=== PATIENT | male | born 1995 | race African-American/Black ===

== ENCOUNTER 2021-01-21 00:16 | Inpatient (IN) | payer MEDICAID, OTHER ==
[~2021-01-21] VITALS: Ht 188 cm; Wt 72.2 kg
[2021-01-21] MEDS ORDERED: ONDANSETRON HCL 4MG/2ML INJ IV STA (01:28)
[2021-01-21] MEDS ORDERED: MORPHINE SULFATE 4 MG/ML CPJ (NOT FOR IM USE) IV STA (01:28)
[2021-01-21] MEDS ORDERED: PIPERACILLIN/TAZ 3.375G PREMIX 50 ML IV ONE (01:30)
[2021-01-21] MEDS ORDERED: VANCOMYCIN 1 G PREMIX 200 ML IV ONE (01:30)
[2021-01-21] MEDS ORDERED: SODIUM CHLORIDE 0.9% 1,000 ML IV ONE (01:30)
[2021-01-21 02:22] LABS: EOSINOPHILS % 2.2 % (0.0-5.0); HEMATOCRIT. 28.9 % (42.0-52.0); HEMOGLOBIN. 9.6 g/dL (14.0-18.0); LYMPHOCYTES % 28.6 % (20.0-50.0); MEAN CORPUSCULAR HEMOGLOBIN 30.5 pg (28.0-32.0); MEAN CORPUSCULAR VOLUME 91.9 fL (80.0-94.0); MEAN PLATELET VOLUME 7.5 fl (7.4-10.4); MONOCYTES % 9.5 % (2.0-8.0); NEUTROPHILS % 58.7 % (40.0-76.0); PLATELET 479 x1000/uL (130-400); RED BLOOD CELL COUNT 3.14 mill/uL (4.7-6.1); RED CELL DISTRIBUTION WIDTH 14.4 % (11.6-14.6)
[2021-01-21 02:26] LABS: CHLORIDE 106 mEq/L (98-107)
[2021-01-21 02:37] LABS: PROTHROMBIN TIME 11.2 sec (9.6-11.0)
[2021-01-21] MEDS ORDERED: MORPHINE SULFATE 4 MG/ML CPJ (NOT FOR IM USE) IV NR (04:15)
[2021-01-21] MEDS ORDERED: ONDANSETRON HCL 4MG/2ML INJ IV PRN (09:30)
[2021-01-21] MEDS ORDERED: HYDROCODONE/ACETAMINOPHEN 5/325MG TABLET PO PRN (09:30)
[2021-01-21] MEDS: HYDROCODONE/ACETAMINOPHEN 5/325MG TABLET PO PRN ×2 (09:47→15:34)
[2021-01-21] MEDS: SODIUM CHLORIDE 0.45% 1,000 ML IV SCH (09:47)
[2021-01-21] MEDS ORDERED: NALOXONE HCL 0.4MG/ML VIAL IV PRN (11:30)
[2021-01-21 16:00] VITALS: BP 146/98
[2021-01-21] MEDS ORDERED: MORPHINE SULFATE 2 MG/ML CPJ (NOT FOR IM USE) IV NR (16:30)
[2021-01-21] MEDS: VANCOMYCIN 1 G PREMIX 200 ML IV SCH (16:41)
[2021-01-21 16:50] VITALS: BP 146/98
[2021-01-21] MEDS: HYDROCODONE/ACETAMINOPHEN 10/325MG TABLET PO PRN ×2 (19:01→23:34)
[2021-01-21 20:00] VITALS: BP 132/80
[2021-01-21] MEDS: PIPERACILLIN/TAZOBACTAM 3.375 G in DEXTROSE 5% WATER 50 ML IV SCH ×2 (21:18→23:36)
[2021-01-22] VITALS: BP 146/92
[2021-01-22 01:59] LABS: *AMPHETAMINES SCREEN URINE NEGATIVE (NEGATIVE)
[2021-01-22 02:00] LABS: *BARBITURATES SCREEN URINE NEGATIVE (NEGATIVE); *BENZODIAZEPINES SCREEN URINE NEGATIVE (NEGATIVE); *COCAINE SCREEN URINE NEGATIVE (NEGATIVE); METHADONE URINE SCREEN NEGATIVE (NEGATIVE); OPIATES URINE SCREEN PRESUMTIVE POSITIVE (NEGATIVE)
[2021-01-22 02:01] LABS: CANNABINOID URINE SCREEN NEGATIVE (NEGATIVE); PHENCYCLIDINE URINE SCREEN NEGATIVE (NEGATIVE)
[2021-01-22 04:00] VITALS: BP 143/99
[2021-01-22] MEDS: HYDROCODONE/ACETAMINOPHEN 10/325MG TABLET PO PRN ×3 (04:38→18:43)
[2021-01-22] MEDS: VANCOMYCIN 1 G PREMIX 200 ML IV SCH ×2 (04:49→19:16)
[2021-01-22] MEDS: SODIUM CHLORIDE 0.45% 1,000 ML IV SCH (04:50)
[2021-01-22] MEDS: PIPERACILLIN/TAZOBACTAM 3.375 G in DEXTROSE 5% WATER 50 ML IV SCH ×3 (06:29→21:49)
[2021-01-22 08:00] VITALS: BP 143/94
[2021-01-22 08:13] LABS: EOSINOPHILS % 3.5 % (0.0-5.0); HEMATOCRIT. 31.6 % (42.0-52.0); HEMOGLOBIN. 10.4 g/dL (14.0-18.0); MEAN CORPUSCULAR VOLUME 91.4 fL (80.0-94.0); MEAN PLATELET VOLUME 8.1 fl (7.4-10.4); MONOCYTES % 8.6 % (2.0-8.0); NEUTROPHILS % 54.9 % (40.0-76.0); PLATELET 498 x1000/uL (130-400); RED BLOOD CELL COUNT 3.45 mill/uL (4.7-6.1); RED CELL DISTRIBUTION WIDTH 14.4 % (11.6-14.6)
[2021-01-22 08:41] LABS: CHLORIDE 105 mEq/L (98-107)
[2021-01-22 12:00] VITALS: BP 147/96
[2021-01-22] MEDS: MORPHINE SULFATE 2 MG/ML CPJ (NOT FOR IM USE) IV PRN ×2 (14:08→21:49)
[2021-01-22 20:00] VITALS: BP 140/99
[2021-01-23] VITALS: BP 135/85
[2021-01-23] MEDS: HYDROCODONE/ACETAMINOPHEN 10/325MG TABLET PO PRN ×3 (01:00→15:50)
[2021-01-23 04:00] VITALS: BP 132/80
[2021-01-23] MEDS: VANCOMYCIN 1 G PREMIX 200 ML IV SCH ×2 (05:18→19:18)
[2021-01-23] MEDS: SODIUM CHLORIDE 0.45% 1,000 ML IV SCH ×2 (05:18→21:10)
[2021-01-23] MEDS: MORPHINE SULFATE 2 MG/ML CPJ (NOT FOR IM USE) IV PRN ×3 (05:18→21:09)
[2021-01-23] MEDS: PIPERACILLIN/TAZOBACTAM 3.375 G in DEXTROSE 5% WATER 50 ML IV SCH ×3 (06:48→21:07)
[2021-01-23 08:00] VITALS: BP 149/99
[2021-01-23 12:00] VITALS: BP 130/91
[2021-01-23 20:00] VITALS: BP 153/99
[2021-01-24] VITALS: BP 150/96
[2021-01-24] MEDS: HYDROCODONE/ACETAMINOPHEN 10/325MG TABLET PO PRN ×3 (01:23→18:04)
[2021-01-24] MEDS: AMLODIPINE 10MG TABLET PO SCH ×2 (01:23→09:46)
[2021-01-24 04:00] VITALS: BP 148/94
[2021-01-24] MEDS: VANCOMYCIN 1 G PREMIX 200 ML IV SCH ×2 (05:12→18:05)
[2021-01-24] MEDS: MORPHINE SULFATE 2 MG/ML CPJ (NOT FOR IM USE) IV PRN ×3 (05:20→20:59)
[2021-01-24] MEDS: PIPERACILLIN/TAZOBACTAM 3.375 G in DEXTROSE 5% WATER 50 ML IV SCH ×3 (06:44→21:48)
[2021-01-24 08:00] VITALS: BP 130/91
[2021-01-24 08:29] LABS: HEMATOCRIT 34.8 % (42.0-52.0); HEMOGLOBIN 11.3 g/dL (14.0-18.0); MEAN CORPUSCULAR HEMOGLOBIN 29.6 pg (28.0-32.0); PLATELET 585 x1000/uL (130-400); RED BLOOD CELL COUNT 3.82 mill/uL (4.7-6.1); RED CELL DISTRIBUTION WIDTH 14.2 % (11.6-14.6)
[2021-01-24 08:36] LABS: CHLORIDE 107 mEq/L (98-107)
[2021-01-24 12:00] VITALS: BP 126/82
[2021-01-24 16:00] VITALS: BP 136/90
[2021-01-24] MEDS: SODIUM CHLORIDE 0.45% 1,000 ML IV SCH (18:05)
[2021-01-24 20:00] VITALS: BP 153/96
[2021-01-25] VITALS: BP 107/53
[2021-01-25] MEDS: HYDROCODONE/ACETAMINOPHEN 10/325MG TABLET PO PRN ×4 (00:28→18:41)
[2021-01-25 04:00] VITALS: BP 140/97
[2021-01-25] MEDS: MORPHINE SULFATE 2 MG/ML CPJ (NOT FOR IM USE) IV PRN ×4 (04:25→22:37)
[2021-01-25 05:26] LABS: CHLORIDE 107 mEq/L (98-107)
[2021-01-25] MEDS: VANCOMYCIN 1 G PREMIX 200 ML IV SCH (05:35)
[2021-01-25] MEDS: PIPERACILLIN/TAZOBACTAM 3.375 G in DEXTROSE 5% WATER 50 ML IV SCH ×3 (06:00→22:29)
[2021-01-25 08:00] VITALS: BP 126/71
[2021-01-25] MEDS: AMLODIPINE 10MG TABLET PO SCH (09:06)
[2021-01-25 12:00] VITALS: BP 131/86
[2021-01-25] MEDS: SODIUM CHLORIDE 0.45% 1,000 ML IV SCH (13:22)
[2021-01-25] MEDS: VANCOMYCIN 1250MG in DEXTROSE 5% WATER 250ML IV SCH (18:00)
[2021-01-25 20:00] VITALS: BP 134/96
[2021-01-26] VITALS: BP 130/90
[2021-01-26] MEDS: HYDROCODONE/ACETAMINOPHEN 10/325MG TABLET PO PRN ×4 (03:25→21:29)
[2021-01-26 04:00] VITALS: BP 124/80
[2021-01-26] MEDS: VANCOMYCIN 1250MG in DEXTROSE 5% WATER 250ML IV SCH ×2 (05:01→18:00)
[2021-01-26] MEDS: MORPHINE SULFATE 2 MG/ML CPJ (NOT FOR IM USE) IV PRN ×3 (05:47→18:01)
[2021-01-26] MEDS: PIPERACILLIN/TAZOBACTAM 3.375 G in DEXTROSE 5% WATER 50 ML IV SCH ×3 (06:29→21:28)
[2021-01-26 08:00] VITALS: BP 144/91
[2021-01-26] MEDS: AMLODIPINE 10MG TABLET PO SCH (09:40)
[2021-01-26] MEDS: SODIUM CHLORIDE 0.45% 1,000 ML IV SCH (09:41)
[2021-01-26 12:00] VITALS: BP 124/89
[2021-01-26 16:00] VITALS: BP 124/79
[2021-01-26 20:00] VITALS: BP 145/99
[2021-01-27] VITALS: BP 144/103
[2021-01-27] MEDS: MORPHINE SULFATE 2 MG/ML CPJ (NOT FOR IM USE) IV PRN ×4 (00:12→18:56)
[2021-01-27 04:00] VITALS: BP 148/93
[2021-01-27] MEDS: SODIUM CHLORIDE 0.45% 1,000 ML IV SCH (06:24)
[2021-01-27] MEDS: AMLODIPINE 10MG TABLET PO SCH (09:13)
[2021-01-27] MEDS: HYDROCODONE/ACETAMINOPHEN 10/325MG TABLET PO PRN ×3 (09:14→22:16)
[2021-01-27 20:00] VITALS: BP 150/97
[2021-01-28] VITALS: BP 123/87
[2021-01-28] MEDS: SODIUM CHLORIDE 0.45% 1,000 ML IV SCH ×2 (03:26→20:51)
[2021-01-28] MEDS: MORPHINE SULFATE 2 MG/ML CPJ (NOT FOR IM USE) IV PRN ×3 (03:27→18:19)
[2021-01-28 04:00] VITALS: BP 123/87
[2021-01-28] MEDS: HYDROCODONE/ACETAMINOPHEN 10/325MG TABLET PO PRN ×3 (06:49→20:56)
[2021-01-28 08:00] VITALS: BP 137/86
[2021-01-28] MEDS: AMLODIPINE 10MG TABLET PO SCH (11:28)
[2021-01-28 20:00] VITALS: BP 142/73
[2021-01-28] MEDS ORDERED: NALOXONE HCL 0.4MG/ML VIAL IV PRN (21:00)
[2021-01-29] VITALS: BP 152/98
[2021-01-29] MEDS: SODIUM CHLORIDE 0.9% 1,000 ML IV SCH ×3 (00:19→20:15)
[2021-01-29] MEDS: MORPHINE SULFATE 2 MG/ML CPJ (NOT FOR IM USE) IV PRN ×4 (00:20→21:36)
[2021-01-29 04:00] VITALS: BP 140/77
[2021-01-29 08:00] VITALS: BP 143/104
[2021-01-29] MEDS ORDERED: LIDOCAINE HCL 1% 20ML VIAL (Pyxis) INJ ONE (08:06)
[2021-01-29] MEDS ORDERED: VANCOMYCIN HCL 1 GM/VIAL ONE (08:06)
[2021-01-29] MEDS ORDERED: BUPIVACAINE HCL/PF 0.5% (5MG/ML) 10ML ONE (08:06)
[2021-01-29] MEDS ORDERED: POLYMYXIN B SULFATE 500000 UNITS/VIAL ONE (08:07)
[2021-01-29] MEDS: AMLODIPINE 10MG TABLET PO SCH (08:50)
[2021-01-29] MEDS ORDERED: ONDANSETRON HCL 4MG/2ML INJ IV PRN (10:15)
[2021-01-29] MEDS ORDERED: HYDROMORPHONE HCL/PF 2MG/ML CPJ IV PRN (10:15)
[2021-01-29] MEDS ORDERED: SODIUM CHLORIDE 0.9% 1,000 ML IV ONE (10:15)
[2021-01-29] MEDS ORDERED: MORPHINE SULFATE 2 MG/ML CPJ (NOT FOR IM USE) IV PRN (10:15)
[2021-01-29] MEDS ORDERED: MEPERIDINE HCL/PF 25MG/ML CPJ IV PRN ×2 (10:15)
[2021-01-29] MEDS ORDERED: ROPIVACAINE HCL 10MG/ML 20 ML VIAL EPI ONE (10:17)
[2021-01-29] MEDS ORDERED: MIDAZOLAM HCL 2 MG/2 ML VIAL ONE (10:18)
[2021-01-29] MEDS ORDERED: PROPOFOL 200MG/20ML VIAL IV ONE (10:18)
[2021-01-29] MEDS ORDERED: FENTANYL CITRATE/PF 50MCG/ML 2ML VIAL ONE (10:18)
[2021-01-29] MEDS ORDERED: GLYCOPYRROLATE 0.2 MG/ML 2ML VIAL ONE (10:19)
[2021-01-29] MEDS ORDERED: CEFAZOLIN SODIUM 1000MG/VIAL ONE (10:19)
[2021-01-29] MEDS ORDERED: METOCLOPRAMIDE HCL 10MG/2ML VIAL ONE (10:19)
[2021-01-29] MEDS ORDERED: SUCCINYLCHOLINE CHLORIDE 200MG/10ML IV ONE (10:19)
[2021-01-29] MEDS ORDERED: BACITRACIN 15GM TUBE TOP ONE (10:59)
[2021-01-29] MEDS ORDERED: TRIAMCINOLONE ACETONIDE 40MG/ML 1ML VIAL ONE (11:18)
[2021-01-29] MEDS ORDERED: DEXAMETHASONE 4MG/ML 1ML VIAL ONE (11:19)
[2021-01-29 16:00] VITALS: BP 140/96
[2021-01-29] MEDS: SODIUM CHLORIDE 0.45% 1,000 ML IV SCH (16:58)
[2021-01-29] MEDS: HYDROCODONE/ACETAMINOPHEN 10/325MG TABLET PO PRN ×2 (16:58→23:32)
[2021-01-29 20:00] VITALS: BP 148/102
[2021-01-30 00:41] VITALS: BP 137/84
[2021-01-30] MEDS: HYDROCODONE/ACETAMINOPHEN 10/325MG TABLET PO PRN ×5 (03:33→22:05)
[2021-01-30 04:44] VITALS: BP 142/96
[2021-01-30] MEDS: SODIUM CHLORIDE 0.9% 1,000 ML IV SCH ×2 (05:57→17:31)
[2021-01-30] MEDS: MORPHINE SULFATE 2 MG/ML CPJ (NOT FOR IM USE) IV PRN ×3 (06:08→20:47)
[2021-01-30 08:00] VITALS: BP 144/92
[2021-01-30] MEDS: AMLODIPINE 10MG TABLET PO SCH (08:26)
[2021-01-30 12:00] VITALS: BP 141/94
[2021-01-30] MEDS: SODIUM CHLORIDE 0.45% 1,000 ML IV SCH (14:26)
[2021-01-30 16:00] VITALS: BP 139/84
[2021-01-30 20:00] VITALS: BP 148/93
[2021-01-31] VITALS: BP 135/91
[2021-01-31] MEDS: HYDROCODONE/ACETAMINOPHEN 10/325MG TABLET PO PRN ×3 (02:09→15:24)
[2021-01-31] MEDS: SODIUM CHLORIDE 0.9% 1,000 ML IV SCH ×3 (02:10→22:30)
[2021-01-31 04:00] VITALS: BP 139/90
[2021-01-31] MEDS: MORPHINE SULFATE 2 MG/ML CPJ (NOT FOR IM USE) IV PRN ×3 (05:16→21:07)
[2021-01-31 08:00] VITALS: BP 140/96
[2021-01-31] MEDS: AMLODIPINE 10MG TABLET PO SCH (09:12)
[2021-01-31] MEDS: SODIUM CHLORIDE 0.45% 1,000 ML IV SCH (09:13)
[2021-01-31 12:00] VITALS: BP 130/87
[2021-01-31 16:00] VITALS: BP 152/89
[2021-01-31 20:00] VITALS: BP 139/76
[2021-01-31] MEDS: ZOLPIDEM TARTRATE 5MG TABLET PO PRN (21:25)
[2021-02-01] VITALS: BP 130/70
[2021-02-01] MEDS: HYDROCODONE/ACETAMINOPHEN 10/325MG TABLET PO PRN ×4 (01:10→21:24)
[2021-02-01] MEDS: MORPHINE SULFATE 2 MG/ML CPJ (NOT FOR IM USE) IV PRN ×3 (03:59→17:23)
[2021-02-01 04:00] VITALS: BP 132/87
[2021-02-01] MEDS: SODIUM CHLORIDE 0.45% 1,000 ML IV SCH (05:30)
[2021-02-01 08:00] VITALS: BP 144/97
[2021-02-01] MEDS ORDERED: ZINC SULFATE 220 MG ( 50 ) CAPSULE PO SCH (09:00)
[2021-02-01] MEDS ORDERED: ASCORBIC ACID 500 MG TABLET PO SCH (09:00)
[2021-02-01] MEDS: ASCORBIC ACID 500 MG TABLET PO SCH (09:03)
[2021-02-01] MEDS: SODIUM CHLORIDE 0.9% 1,000 ML IV SCH ×2 (09:03→17:28)
[2021-02-01] MEDS: ZINC SULFATE 220 MG ( 50 ) CAPSULE PO SCH (09:03)
[2021-02-01] MEDS: AMLODIPINE 10MG TABLET PO SCH (09:04)
[2021-02-01 12:00] VITALS: BP 160/97
[2021-02-01] MEDS: LISINOPRIL 20MG TABLET PO SCH (14:57)
[2021-02-01 16:00] VITALS: BP 135/98
[2021-02-01 20:00] VITALS: BP 135/100
[2021-02-01] MEDS: ZOLPIDEM TARTRATE 5MG TABLET PO PRN (22:47)
[2021-02-02] VITALS: BP 137/90
[2021-02-02] MEDS: HYDROCODONE/ACETAMINOPHEN 10/325MG TABLET PO PRN ×3 (03:52→17:57)
[2021-02-02] MEDS: SODIUM CHLORIDE 0.9% 1,000 ML IV SCH ×2 (03:54→15:05)
[2021-02-02 04:00] VITALS: BP 140/90
[2021-02-02] MEDS: MORPHINE SULFATE 2 MG/ML CPJ (NOT FOR IM USE) IV PRN ×3 (06:56→22:46)
[2021-02-02 08:00] VITALS: BP 118/79
[2021-02-02] MEDS: ZINC SULFATE 220 MG ( 50 ) CAPSULE PO SCH (09:06)
[2021-02-02] MEDS: ASCORBIC ACID 500 MG TABLET PO SCH (09:06)
[2021-02-02] MEDS: AMLODIPINE 10MG TABLET PO SCH (09:06)
[2021-02-02] MEDS: LISINOPRIL 20MG TABLET PO SCH (09:07)
[2021-02-02 12:00] VITALS: BP 127/77
[2021-02-02 16:00] VITALS: BP 129/81
[2021-02-02] MEDS: ZOLPIDEM TARTRATE 5MG TABLET PO PRN (23:55)
[2021-02-03] MEDS: HYDROCODONE/ACETAMINOPHEN 10/325MG TABLET PO PRN ×3 (01:27→18:37)
[2021-02-03] MEDS: SODIUM CHLORIDE 0.9% 1,000 ML IV SCH ×3 (01:28→20:15)
[2021-02-03] MEDS: MORPHINE SULFATE 2 MG/ML CPJ (NOT FOR IM USE) IV PRN ×3 (06:53→21:52)
[2021-02-03 08:00] VITALS: BP 129/81
[2021-02-03] MEDS: ASCORBIC ACID 500 MG TABLET PO SCH (09:18)
[2021-02-03] MEDS: ZINC SULFATE 220 MG ( 50 ) CAPSULE PO SCH (09:18)
[2021-02-03] MEDS: AMLODIPINE 10MG TABLET PO SCH (09:19)
[2021-02-03] MEDS: LISINOPRIL 20MG TABLET PO SCH (09:19)
[2021-02-03 09:36] VITALS: BP 129/88
[2021-02-03 12:00] VITALS: BP 146/92
[2021-02-03] MEDS: GABAPENTIN 100MG CAPSULE PO SCH ×2 (13:41→21:51)
[2021-02-03 16:00] VITALS: BP 138/90
[2021-02-03 18:40] VITALS: BP 130/92
[2021-02-04] MEDS: HYDROCODONE/ACETAMINOPHEN 10/325MG TABLET PO PRN ×4 (00:39→23:04)
[2021-02-04] MEDS: GABAPENTIN 100MG CAPSULE PO SCH ×3 (06:19→21:35)
[2021-02-04] MEDS: SODIUM CHLORIDE 0.9% 1,000 ML IV SCH ×2 (06:20→15:32)
[2021-02-04] MEDS: MORPHINE SULFATE 2 MG/ML CPJ (NOT FOR IM USE) IV PRN ×3 (06:20→20:40)
[2021-02-04 08:00] VITALS: BP 130/86
[2021-02-04] MEDS: AMLODIPINE 10MG TABLET PO SCH (08:55)
[2021-02-04] MEDS: LISINOPRIL 20MG TABLET PO SCH (08:55)
[2021-02-04] MEDS: ZINC SULFATE 220 MG ( 50 ) CAPSULE PO SCH (08:55)
[2021-02-04] MEDS: ASCORBIC ACID 500 MG TABLET PO SCH (08:55)
[2021-02-04 12:00] VITALS: BP 119/83
[2021-02-04 16:00] VITALS: BP 121/89
[2021-02-04 20:00] VITALS: BP 150/88
[2021-02-05] VITALS: BP 125/85
[2021-02-05] MEDS: SODIUM CHLORIDE 0.9% 1,000 ML IV SCH ×2 (02:21→12:15)
[2021-02-05 04:00] VITALS: BP 127/87
[2021-02-05] MEDS: MORPHINE SULFATE 2 MG/ML CPJ (NOT FOR IM USE) IV PRN (04:39)
[2021-02-05 08:00] VITALS: BP 134/80
[2021-02-05] MEDS: GABAPENTIN 100MG CAPSULE PO SCH ×2 (08:50→14:32)
[2021-02-05] MEDS: ZINC SULFATE 220 MG ( 50 ) CAPSULE PO SCH (08:50)
[2021-02-05] MEDS: AMLODIPINE 10MG TABLET PO SCH (08:50)
[2021-02-05] MEDS: ASCORBIC ACID 500 MG TABLET PO SCH (08:50)
[2021-02-05] MEDS: LISINOPRIL 20MG TABLET PO SCH (08:50)
[2021-02-05] MEDS: HYDROCODONE/ACETAMINOPHEN 10/325MG TABLET PO PRN ×2 (08:51→14:34)
[2021-02-05 12:00] VITALS: BP 150/66
[2021-02-05] MEDS ORDERED: HYDR-4001 MT (12:52)
[2021-02-05 15:51] VITALS: BP_SYST 126; BP_SYST 150; BP_DIAS 66; BP_DIAS 82
[2021-02-05 16:00] VITALS: BP 126/82
== END 2021-02-05 17:07 | disposition home health service (06) | DRG 314 ==
LOC: ER 00:16 → MICUSO 04:21 → ENRESERV 11:25 → CANRESERV 12:05 → ENRESERV 12:05 → 6EST 12:17
PROVIDERS: ADMIT Internal Medicine; ATTEND Internal Medicine
PROC: 0Y6P0Z0 Detachment at Right 1st Toe, Complete, Open Approach (ICD-10-PCS; principal; 2021-01-29)
PROC: 0HXMXZZ Transfer Right Foot Skin, External Approach (ICD-10-PCS; 2021-01-29)
DX: L03.115 Cellulitis of right lower limb (principal); I96 Gangrene, not elsewhere classified; N17.9 Acute kidney failure, unspecified; E44.0 Moderate protein-calorie malnutrition; L97.519 Non-pressure chronic ulcer of other part of right foot with unspecified severity; L03.116 Cellulitis of left lower limb; N18.9 Chronic kidney disease, unspecified; Z20.822 Contact with and (suspected) exposure to COVID-19; R74.01 Elevation of levels of liver transaminase levels; D64.9 Anemia, unspecified; F15.90 Other stimulant use, unspecified, uncomplicated; Z59.0 Homelessness; Z82.49 Family history of ischemic heart disease and other diseases of the circulatory system; Z68.20 Body mass index [BMI] 20.0-20.9, adult; Z72.0 Tobacco use
CPT/HCPCS: 36415; 71045; 73630; 80048; 80053; 80202; 80305; 83605; 84145; 85025; 85027; 87426; 88305; 88311; 93005; 93923; 97162; 97530; 99291; C1893; J0330; J0690; J1100; J2250; J2270; J2405; J2543; J2704; J2765; J2795; J3010; J3301; J3370; J3490; J7030; J7060